=== PATIENT | female | born 2000 | race Caucasian/White ===

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

== ENCOUNTER 2022-06-04 00:10 | Emergency (ER) | payer SELFPAY | END 2022-06-04 00:58 | disposition home or self-care (01) | LOC: FB.ED 00:10 | DX: O9A.312 Physical abuse complicating pregnancy, second trimester (principal); Z3A.16 16 weeks gestation of pregnancy; Y04.2XXA Assault by strike against or bumped into by another person, initial encounter | CPT/HCPCS: 99283 ==